=== PATIENT | male | born 1950 | race African-American/Black ===

== ENCOUNTER 2017-08-29 06:01 | Emergency (ER) | payer MEDICARE, MEDICAID ==
[~2017-08-29] VITALS: Ht 170.2 cm; Wt 100.0 kg
[2017-08-29] MEDS ORDERED: SODIUM CHLORIDE 0.9% 1,000 ML IV ONE (07:28)
[2017-08-29 08:26] LABS: CHLORIDE 112 mEq/L (98-107)
[2017-08-29 08:30] LABS: ETHANOL BLOOD 23 mg/dL
[2017-08-29 08:33] LABS: BASOPHILS % 0.8 % (0.0-2.0); EOSINOPHILS % 1.6 % (0.0-5.0); HEMATOCRIT. 43.7 % (42.0-52.0); HEMOGLOBIN. 14.8 g/dL (14.0-18.0); LYMPHOCYTES % 29.1 % (20.0-50.0); MEAN CORPUSCULAR HEMOGLOBIN 30.8 pg (28.0-32.0); MEAN CORPUSCULAR VOLUME 91.2 fL (80.0-94.0); MEAN PLATELET VOLUME 8.3 fl (7.4-10.4); MONOCYTES % 7.8 % (2.0-8.0); NEUTROPHILS % 60.7 % (40.0-76.0); PLATELET 255 x1000/uL (130-400); RED CELL DISTRIBUTION WIDTH 13.7 % (11.6-14.6)
[2017-08-29] MEDS ORDERED: POTASSIUM CHLORIDE 20MEQ TABLET SR PO ONE (09:00)
[2017-08-29] MEDS ORDERED: CLONIDINE 0.1MG TABLET PO ONE (09:45)
[2017-08-29 10:35] LABS: *AMPHETAMINES SCREEN URINE NEGATIVE (NEGATIVE); *BARBITURATES SCREEN URINE NEGATIVE (NEGATIVE)
[2017-08-29 10:36] LABS: *BENZODIAZEPINES SCREEN URINE NEGATIVE (NEGATIVE); *COCAINE SCREEN URINE PRESUMTIVE POSITIVE (NEGATIVE); CANNABINOID URINE SCREEN NEGATIVE (NEGATIVE); METHADONE URINE SCREEN NEGATIVE (NEGATIVE); OPIATES URINE SCREEN NEGATIVE (NEGATIVE); PHENCYCLIDINE URINE SCREEN NEGATIVE (NEGATIVE)
[2017-08-29 10:58] VITALS: BP 156/112
== END 2017-08-29 11:03 | disposition home or self-care (01) ==
LOC: ER 06:08
DX: F14.10 Cocaine abuse, uncomplicated (principal); I10 Essential (primary) hypertension; F10.10 Alcohol abuse, uncomplicated; J45.909 Unspecified asthma, uncomplicated; E78.00 Pure hypercholesterolemia, unspecified; F17.200 Nicotine dependence, unspecified, uncomplicated; E87.6 Hypokalemia; Y90.1 Blood alcohol level of 20-39 mg/100 ml; Z86.73 Personal history of transient ischemic attack (TIA), and cerebral infarction without residual deficits
CPT/HCPCS: 36415; 70450; 71045; 80053; 80305; 84484; 85025; 93005; 96360; 96361; 99285; G0482; J7030